=== PATIENT | female | born 1995 | race Caucasian/White ===

== ENCOUNTER 2023-03-02 08:06 | Day surgery (SDC) | payer OTHER ==
[~2023-03-02] VITALS: Ht 154.9 cm; Wt 43.7 kg
[2023-03-02] MEDS ORDERED: LO LOESTRIN FE1 TAB PO (08:19)
[2023-03-02] MEDS ORDERED: PROTONIX 40MG T40 MG PO (08:19)
[2023-03-02] MEDS ORDERED: KEPPRA1000 MG PO (08:20)
[2023-03-02 08:21] VITALS: BP 104/66; PULSE 18; TEMP 97.6
[2023-03-02] MEDS ORDERED: TERRAZYME PO (08:21)
--- NOTE | 2023-03-02 08:45 | NUR ---
The patient ambulated back to [place] [facility] independently using a steady gait and appeared to tolerate the activity well. Vital signs obtained. Consent signed. 20G IV started in right hand with one stick, LR infusing without difficulty. Assessment completed. Home medication reconcilled. at bedside. Call light is within reach. Warm blanket provided. Urine HCG obtained with a negative result. Denies any further needs at this time.
[2023-03-02 10:05] VITALS: BP 119/75; PULSE 98; TEMP 98.3
[2023-03-02 10:20] VITALS: BP 103/81; PULSE 74
--- NOTE | 2023-03-02 11:27 | NUR ---
1005-PT ARRIVED TO [facility] VIA CART, AMBULATED WITH ASSISTANCE TO RECLINER. WARM BLANKET PROVIDED. VITAL SIGNS TAKEN, VSS. PT DENIES NAUSEA, REPORTS PAIN IMPROVED FROM PRIOT TO PROCEDURE. REPORT OBTAINED FROM TARA AVALOS. PT ALERT AND ORIENTED, BUT TEARFUL. SPOUSE AT BEDSIDE. PO INTAKE OFFERED. 1020-PT TOLERATING PO INTAKE WELL, DENIES NAUSEA. VSS 1045-PT CHANGED INTO [place], AWAITING REPORT FROM DR. REYNA 1110-DR. REYNA AT BEDSIDE, PROCEDURE EXPLAINED AND QUESTIONS INVITED. DISCHARGE INSTRUCTIONS REVIEWED. 1115-IV CATHETER REMOVED, TIP INTACT. PRESSURE HELD AND BANDAGE APPLIED. 1120-PT DISCHARGED HOME TO [facility] VIA WHEELCHAIR, ACCOMPANIED BY SPOUSE. ALL BELONGINGS AND DC INSTRUCTIONS SENT WITH SPOUSE
== END 2023-03-02 11:20 | disposition home or self-care (01) ==
LOC: SDCO 08:06
DX: R10.13 Epigastric pain (principal); R11.0 Nausea; R14.0 Abdominal distension (gaseous); G80.9 Cerebral palsy, unspecified; Z79.899 Other long term (current) drug therapy
CPT/HCPCS: J2704; J3010; J7120

== ENCOUNTER 2023-03-03 17:17 | Emergency (ER) | payer OTHER ==
[~2023-03-03] VITALS: Ht 154.9 cm; Wt 44.1 kg
[~2023-03-03 17:17] MED LIST: KEPPRA1000 MG PO; LO LOESTRIN FE1 TAB PO; PROTONIX 40MG T40 MG PO; TERRAZYME PO
[2023-03-03 17:30] VITALS: TEMP 97.8
[2023-03-03 19:09] LABS: COLLECTION METHOD CLEAN CATCH
[2023-03-03 19:15] LABS: BASO # 0.1 K/mm3 (0.0-0.2); BASO % 0.5 % (0.0-2.0); EOS # 0.6 K/mm3 (0.0-0.7); GRAN # 6.1 K/mm3 (1.4-6.5); GRAN % 61.2 % (42.2-75.2); HEMATOCRIT 38.4 % (37.0-47.0); HEMOGLOBIN 13.2 g/dl (12.5-16.0); LYMPH # 2.7 K/mm3 (1.2-3.4); LYMPH % 27.4 % (20.0-51.0); MEAN CELL VOLUME 92 fl (80.0-100.0); MEAN CORPUSCULAR HEMOGLOBIN 32 pg (27-31); MEAN CORPUSCULAR HGB CONC 34 g/dl (33.0-37.0); MEAN PLATELET VOLUME 10.5 fl (7.4-10.4); MONO # 0.5 K/mm3 (0.1-0.6); MONO % 4.7 % (1.7-9.3); PLATELET COUNT 258 K/mm3 (130-400); RED BLOOD COUNT 4.19 M/mm3 (4.10-5.30)
[2023-03-03 19:16] LABS: URINE APPEARANCE Cloudy (CLEAR/HAZY); URINE COLOR Yellow (YELLOW); URINE GLUCOSE Negative (NEGATIVE); URINE KETONE Negative (NEGATIVE); URINE PROTEIN(semi-quant) 1+ (NEGATIVE)
[2023-03-03 19:17] LABS: URINE BLOOD 2+ (NEGATIVE); URINE NITRATE Negative (NEGATIVE)
[2023-03-03 19:22] LABS: AMORPHOUS CRYSTAL Present (NOT PRESENT)
[2023-03-03 19:32] LABS: ALBUMIN 3.7 gm/dL (3.5-5.0); BILIRUBIN,TOTAL 0.5 mg/dL (0.2-1.2); C-REACTIVE PROTEIN 0.31 mg/dL (0.00-0.50); CALCIUM 9.5 mg/dL (8.4-10.2); CREATININE, serum 0.8 mg/dL (0.57-1.11); TOTAL PROTEIN 7.1 gm/dL (6.2-8.1)
[2023-03-03 19:45] VITALS: BP 108/62; PULSE 66
== END 2023-03-03 19:57 | disposition home or self-care (01) ==
LOC: COL.ER 17:17
PROVIDERS: Nurse Practitioner Primary Care
DX: R10.31 Right lower quadrant pain (principal); R10.32 Left lower quadrant pain; Z98.890 Other specified postprocedural states; Z28.310 Unvaccinated for COVID-19
CPT/HCPCS: J1885